=== PATIENT | female | born 2000 | race American Indian/Alaskan Native ===

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

== ENCOUNTER 2019-12-18 05:44 | Day surgery (SDC) | payer MEDICAID ==
[~2019-12-18 05:44] MED LIST: LACTATED RINGERS 1,000 ML IV SCH
[2019-12-18] MEDS ORDERED: MIDAZOLAM 2 MG/2 ML INJ IV NR (06:00)
[2019-12-18] MEDS ORDERED: BACTERIOSTATIC SODIUM CHLORIDE 0.9% 30 ML VIAL INFILTRATI ONE (06:50)
[2019-12-18] MEDS ORDERED: LIDOCAINE MPF (2%) 20 MG/1 ML VIAL 5 ML ONE (07:18)
[2019-12-18] MEDS ORDERED: MIDAZOLAM 2 MG/2 ML INJ ONE (07:19)
[2019-12-18] MEDS ORDERED: propofoL 200 MG/20 ML VIAL IV ONE (07:19)
[2019-12-18] MEDS ORDERED: fentaNYL 100 MCG/2 ML INJ ONE (07:19)
[2019-12-18] MEDS ORDERED: SCOPOLAMINE TRANSDERMAL PATCH 72 HR TD NR (07:20)
--- NOTE | 2019-12-18 07:21 | Anesthesia Consultation ---
Anesthesia Consult and Med Hx Date of service: 12/18/19 - Airway Anesthetic Teeth Evaluation: Good ROM Head & Neck: Adequate Mental/Hyoid Distance: Adequate Mallampati Class: Class II Intubation Access Assessment: Probably Good - Pulmonary Exam CTA: Yes - Cardiac Exam Cardiac Exam: RRR - Pre-Operative Health Status ASA Pre-Surgery Classification: ASA1 Proposed Anesthetic Plan: General, MAC - Pre-Anesthesia Comment Pre-Anesthesia Comments: MAC vs GA pending discussion w/ surgeon regarding extent of intended procedure. - Pulmonary Hx Smoking: No Hx Respiratory Symptoms: No (flu 3 months ago; resolved) - Cardiovascular System Hx Hypertension: No Hx Heart Attack/AMI: No - Central Nervous System CVA: No - Gastrointestinal Hx Gastroesophageal Reflux Disease: No - Endocrine Hx Renal Disease: No Hx Liver Disease: No Hx Insulin Dependent Diabetes: No Hx Non-Insulin Dependent Diabetes: No Hx Thyroid Disease: No - Hematic Hx Anemia: Yes Hx Sickle Cell Disease: No - Other Systems Hx Obesity: No - Additional Comments Anesthesia Medical History Comments: No prior GA.
--- NOTE | 2019-12-18 07:22 | Anesthesia Day of Surgery ---
Anesthesia Day of Surgery - Day of Surgery Patient Examined: Yes Patient H&P Reviewed: Yes Patient is NPO: Yes
[2019-12-18] MEDS ORDERED: SCOPOLAMINE TRANSDERMAL PATCH 72 HR TD ONE (07:23)
[2019-12-18 07:31] LABS: Hematocrit 37.1 % (30.3-42.9); Hemoglobin 12.2 gm/dl (10.1-14.3)
[2019-12-18] MEDS ORDERED: dexAMETHasone 20 MG/5 ML VIAL ONE (08:04)
[2019-12-18] MEDS ORDERED: KETOROLAC 30 MG/1 ML INJ ONE (08:04)
[2019-12-18] MEDS ORDERED: ONDANSETRON 4 MG/2 ML INJ ONE (08:04)
[2019-12-18] MEDS ORDERED: SILVER NITRATE APPLICATOR 1 EA TP ONE (08:15)
[2019-12-18] MEDS ORDERED: SODIUM CHLORIDE 0.9% IRRIG SOLN 2000 ML IR ONE (08:36)
[2019-12-18] MEDS ORDERED: SODIUM CHLORIDE 0.9% IRR 1,500 ML BOTTLE IR ONE (08:37)
--- NOTE | 2019-12-18 09:03 | Operative Report ---
Operative Report Operative Report: Date: 12/18/19 Preop: 1. IUD missing Postop: RAMIRO Procedure: Hysteroscopy and IUD removal Surgeon: Lazarus Pennington Anesthesia : MAC EBL: minimal Indications: Missing IUD, Radiology confirms intrauterine Procedure: The patient was consented in the prop suite. She was takent o the operative suite, placed in dorsal lithotomy position, and placed under IV sedation. She was prepped and draped in the normal sterile fashion. Her bladder was drained with a red Johnson catheter which produced approximatley 100 cc cl ear yellow urine. A bimanual exam was performed by myself and uterus found to be antevertted, mobile . The cervix and vagina grossly normal with no obvious masses or deformities. A weighted speculum was placed in the posterior aspect of the vagina and the anteriro lip of the cervix was grasped with the tenaculum. The uterus sounded to 7 cm. The cervix was sterily dilated with james diltor and then chris dilator. The dilation was discontinued at theat time because it was completed and the hysteroscope placed in the the uterus. Under direct visualization , the iud located and short string grasped from grasper and removed intact and sent to pathology. All instrument removed. Patient tolerated procedure well.
[2019-12-18 09:05] VITALS: BP 115/61
--- NOTE | 2019-12-18 09:55 | Post Anesthesia Evaluation ---
- Post Anesthesia Evaluation Patient Participated: Yes Airway Patent: Yes Stable Respiratory Function: Yes Nausea/Vomiting: No Temp > 96.8F: Yes Pain Manageable: Yes Adequeate Hydration: Yes Anesthesia Complications: No
== END 2019-12-18 05:45 | disposition home or self-care (01) ==
LOC: OR 05:44
PROVIDERS: ATTEND Obstetrics & Gynecology
DX: T83.32XA Displacement of intrauterine contraceptive device, initial encounter (principal); Z79.899 Other long term (current) drug therapy; Z72.89 Other problems related to lifestyle; Z98.890 Other specified postprocedural states; Z82.49 Family history of ischemic heart disease and other diseases of the circulatory system; Z86.2 Personal history of diseases of the blood and blood-forming organs and certain disorders involving the immune mechanism; Y83.9 Surgical procedure, unspecified as the cause of abnormal reaction of the patient, or of later complication, without mention of misadventure at the time of the procedure; Y92.89 Other specified places as the place of occurrence of the external cause
CPT/HCPCS: 36415; 58562; 81025; 85014; 85018; 88300; A4217; J1100; J1885; J2250; J2405; J2704; J3010; J7120; 88302

== ENCOUNTER 2020-02-18 11:48 | Day surgery (SDC) | payer MEDICAID ==
--- NOTE | 2020-02-17 15:59 | Short Stay Summary ---
Short Stay Documentation Date of service: 02/18/20 Narrative H&P: 19y/o with undesired fertility. The patient is aware of other contraceptive options. She has elected for permanent sterilization Patient has been reassessed/reevaluated/re-examined. H&P has been reviewed. No interval changes. - History Principal diagnosis: Undesired fertility Past Medical History: No medical history Past Surgical History: No surgical history Social history: single - Allergies and Medications Current Medications: Allergies No Known Allergies Allergy (Verified 02/12/20 11:52) Home Medications Medication Instructions Recorded Confirmed Last Taken Type No Known Home Medications [No 02/12/20 02/12/20 Unknown History Reported Home Medications] Active Medications Celecoxib (Celebrex) 200 mg PO PREOP NR Stop: 02/18/20 23:00 Gabapentin (Gabapentin) 600 mg PO PREOP NR Stop: 02/18/20 23:00 Lactated Ringer's (Lactated Ringers) 1,000 mls @ 100 mls/hr IV DIRECT HOWIE Stop: 02/18/20 23:59 Midazolam HCl (Versed) 2 mg IV PREOP NR Stop: 02/18/20 23:00 Scopolamine (Transderm-Scop) 1 each TD PREOP NR Stop: 02/18/20 23:00 - Physical exam General appearance: no acute distress Integumentary: no rash HEENT: Atraumatic Lungs: Clear to auscultation Breasts: deferred Heart: Regular rate Gastrointestinal: normal Female Genitourinary: deferred Rectal Exam: deferred Extremities: no ischemia Neurological: Normal gait - Brief post op/procedure progress note Date of procedure: 02/18/20 Pre-op diagnosis: Undesired fertility Post-op diagnosis: same Procedure: Laparoscopic bilateral tubal ligation with Filshie clips Anesthesia: MARY ANNA Surgeon: ARIEL SANDY Estimated blood loss: minimal Pathology: none Condition: stable - Hospital course Hospital course: Patient admitted the day of surgery and underwent a laparoscopic tubal ligation. Please see operative note for details of surgery. Postoperative course was uneventful. - Disposition Condition at discharge: Good Disposition: [id number] TO HOME OR SELFCARE Short Stay Discharge Plan Activity: other (Pelvic rest for 1 week) Diet: regular Additional Instructions: Follow-up is not required Follow-up as needed Prescriptions: Ibuprofen [Motrin] 800 mg PO Q8HR PRN #60 tablet PRN Reason: Pain, Mild (1-3) HYDROcodone/APAP 5-325 [Rocky Comfort 5/325] 1 each PO Q6HR PRN #20 tablet PRN Reason: Pain
[~2020-02-18 11:48] MED LIST changes: +BUPIVACAINE/PF (0.5%) 5 MG/1 ML 30 ML VIAL INFILTRATI ONE; +CELECOXIB 200 MG CAP PO NR; +GABAPENTIN 300 MG CAP PO NR; +MIDAZOLAM 2 MG/2 ML INJ IV NR; +SCOPOLAMINE TRANSDERMAL PATCH 72 HR TD NR
[2020-02-18] MEDS ORDERED: HYDROmorphone 1 MG/1 ML INJ IV PRN (13:19)
--- NOTE | 2020-02-18 13:19 | Anesthesia Consultation ---
Anesthesia Consult and Med Hx Date of service: 02/18/20 - Airway Anesthetic Teeth Evaluation: Good ROM Head & Neck: Adequate Mental/Hyoid Distance: Adequate Mallampati Class: Class I Intubation Access Assessment: Good - Pulmonary Exam CTA: Yes - Cardiac Exam Cardiac Exam: RRR - Pre-Operative Health Status ASA Pre-Surgery Classification: ASA1 Proposed Anesthetic Plan: General - Pulmonary Hx Smoking: No Hx Respiratory Symptoms: No Hx Sleep Apnea: No - Cardiovascular System Hx Hypertension: No Hx Heart Attack/AMI: No Hx Percutaneous Transluminal Coronary Angioplasty (PTCA): No - Central Nervous System CVA: No - Gastrointestinal Hx Gastroesophageal Reflux Disease: No - Endocrine Hx Renal Disease: No Hx Liver Disease: No Hx Insulin Dependent Diabetes: No Hx Non-Insulin Dependent Diabetes: No Hx Thyroid Disease: No - Other Systems Hx Obesity: No - Additional Comments Anesthesia Medical History Comments: No hx anesthetic complications.
--- NOTE | 2020-02-18 13:19 | Anesthesia Day of Surgery ---
Anesthesia Day of Surgery - Day of Surgery Patient Examined: Yes Patient H&P Reviewed: Yes Patient is NPO: Yes
[2020-02-18] MEDS ORDERED: BUPIVACAINE/PF (0.5%) 5 MG/1 ML 30 ML VIAL INFILTRATI ONE ×2 (13:50→15:04)
[2020-02-18] MEDS ORDERED: ROCURONIUM 50 MG/5 ML INJ IV ONE (14:20)
[2020-02-18] MEDS ORDERED: LIDOCAINE MPF (2%) 20 MG/1 ML VIAL 5 ML ONE (14:20)
[2020-02-18] MEDS ORDERED: propofoL 200 MG/20 ML VIAL IV ONE (14:20)
[2020-02-18] MEDS ORDERED: fentaNYL 100 MCG/2 ML INJ ONE (14:20)
[2020-02-18] MEDS ORDERED: SODIUM CHLORIDE 0.9% IRR 1,500 ML BOTTLE IR ONE (15:02)
[2020-02-18] MEDS ORDERED: SUGAMMADEX SODIUM 200 MG/2 ML VIAL IV ONE (15:10)
--- NOTE | 2020-02-18 15:13 | Operative Report ---
Operative Report Operative Report: Date of surgery: February 18, 2020 Preoperative diagnosis: Unwanted fertility Postoperative diagnosis: Same as above Procedure: Laparoscopic bilateral tubal ligation with Filshie clips Surgeon: Nyla Mari M.D. Anesthesia: General endotracheal anesthesia Estimated blood loss: Minimal Findings: Normal uterus, tubes and ovaries Indication: 19-year-old -0-0-2 with undesired fertility Procedure: The patient was taken to the operating room and given general endotracheal anesthesia without complication. The patient is prepped and draped in a normal sterile fashion. A bivalve speculum was placed in the patient's vagina and a single-tooth tenaculum was placed on the anterior lip of the cervix .A uterine acorn manipulator was placed, and the bivalve speculum was then removed. Attention was then turned to the patient's abdomen where a 5 mm infraumbilical skin incision was then made. A Veress needle was placed and peritoneal entry was verified water-filled syringe. Insufflation of the peritoneal cavity was performed with CO2 gas. A 5 mm trocar was placed and the laparoscope was then inserted. The patient was then placed in Trendelenburg. A 7 mm suprapubic skin incision was then made. Under direct visualization a 7 mm trocar was then placed. General survey of the patient's abdomen revealed normal uterus tubes and ovaries. The fallopian tube was then followed out to the fimbriated end. Two Filshie clips were placed, on the ampullary portion of the tube. This was performed on the contralateral side as well. The 7 mm trocar was then removed. The pneumoperitoneum was then released. The 5 mm trocar laparoscope was then removed. The skin incisions were then closed with 4-0 Monocryl. The incisions were injected with quarter percent Marcaine. Dressings were applied to the incision. The vaginal instruments were then removed atraumatically. Then successfully extubated and taken to the recovery room. All sponge laps and needle counts were correct x2.
[2020-02-18] MEDS ORDERED: IBUPROFEN 800 MG TAB PO PRN (16:04)
[2020-02-18 16:50] VITALS: BP 105/61
[2020-02-18] MEDS ORDERED: ONDANSETRON 4 MG/2 ML INJ IV ONE (17:00)
== END 2020-02-18 16:40 | disposition home or self-care (01) ==
LOC: OR 11:48
PROVIDERS: ATTEND Obstetrics & Gynecology
DX: Z30.2 Encounter for sterilization (principal); Z79.899 Other long term (current) drug therapy; Z90.710 Acquired absence of both cervix and uterus; Z79.82 Long term (current) use of aspirin; Z98.890 Other specified postprocedural states; Z82.49 Family history of ischemic heart disease and other diseases of the circulatory system
CPT/HCPCS: 58671; 81025; J1170; J2250; J2405; J2704; J3010; J7120